=== PATIENT | female | born 1955 | race Caucasian/White ===

== ENCOUNTER 2023-02-13 15:51 | Emergency (ER) | payer MEDICARE ==
[~2023-02-13] VITALS: Ht 165.1 cm; Wt 85.3 kg
[2023-02-13] MEDS ORDERED: ONDANSETRON HCL INJ 2MG/ML 2ML 2 MG/ML VIAL IV STA (16:13)
[2023-02-13] MEDS ORDERED: KETOROLAC TROMETHAMINE 30 MG/ML VIAL IV STA (16:13)
[2023-02-13] MEDS ORDERED: Morphine 2mg Syringe 2 MG/ML SYR IV STA (16:13)
[2023-02-13 16:47] LABS: BASOPHILS # (AUTO) 0.1 (0.0-0.1); BASOPHILS % 0.6 % (0.0-1.0); EOSINOPHILS # (AUTO) 0.1 (0.0-0.4); EOSINOPHILS % 1.2 % (0.0-6.0); HEMATOCRIT 39.1 % (34.2-44.1); HEMOGLOBIN 12.5 g/dL (12.0-16.0); LYMPHOCYTES # (AUTO) 1.6 (1.0-3.2); LYMPHOCYTES % 21.3 % (18.0-39.1); MEAN CORPUSCULAR HEMOGLOBIN 28.4 pg (28-32); MEAN CORPUSCULAR VOLUME 88.9 fL (81-99); MONOCYTES # (AUTO) 0.6 (0.2-0.8); MONOCYTES % 7.9 % (4.4-11.3); NEUTROPHILS # (AUTO) 5.3 (2.1-6.9); NEUTROPHILS % 68.7 % (38.7-80.0); PLATELET COUNT 341 x10e3/uL (140-360); RED CELL DISTRIBUTION WIDTH 13.4 % (11.7-14.4)
[2023-02-13 16:58] LABS: INR 0.88; PROTHROMBIN TIME 12.4 seconds (11.9-14.5)
[2023-02-13 16:59] LABS: PARTIAL THROMBOPLASTIN TIME 31.8 seconds (23.8-35.5)
[2023-02-13 17:06] LABS: ALBUMIN 3.9 g/dL (3.5-5.0); ALBUMIN/GLOBULIN RATIO 1.3 (0.8-2.0); ANION GAP 15.1 mmol/L (8-16); CREATININE, SERUM 0.62 mg/dL (0.57-1.11); POTASSIUM 4.1 mmol/L (3.5-5.1)
[2023-02-13] MEDS ORDERED: ULTRAM 50MG50 MG PO (18:34)
[2023-02-13 19:02] VITALS: BP 141/79; PULSE 67; RESP 18; O2SAT 99
== END 2023-02-13 19:00 | disposition home or self-care (01) ==
LOC: ER 16:03
DX: R60.9 Edema, unspecified (principal); M79.672 Pain in left foot; S92.354D Nondisplaced fracture of fifth metatarsal bone, right foot, subsequent encounter for fracture with routine healing
CPT/HCPCS: 36415; 73610; 73630; 80053; 85025; 85610; 85730; 93971; 99284; J1885; J2270; J2405

== ENCOUNTER 2025-05-20 17:28 | Inpatient (IN) | payer MEDICARE ==
[~2025-05-20] VITALS: Ht 165.1 cm; Wt 79.8 kg
[~2025-05-20 17:28] MED LIST: ULTRAM 50MG50 MG PO
[2025-05-20 18:13] VITALS: TEMP 97.9
[2025-05-20 19:05] LABS: BASOPHILS % 0.6 % (0.0-1.0); EOSINOPHILS % 1.1 % (0.0-6.0); LYMPHOCYTES % 21.4 % (18.0-39.1); MONOCYTES % 6.9 % (4.4-11.3); NEUTROPHILS % 69.6 % (38.7-80.0); RED CELL DISTRIBUTION WIDTH 13.4 % (11.7-14.4)
[2025-05-20 19:10] LABS: INR 0.9
[2025-05-20 19:16] LABS: EST GLOMERULAR FILTRATION RATE 98.0 ML/MIN (>=60)
[2025-05-20 21:00] VITALS: PULSE 79; RESP 17
[2025-05-20] MEDS ORDERED: ONDANSETRON HCL INJ 2MG/ML 2ML 2 MG/ML VIAL IV PRN (22:00)
[2025-05-20] MEDS ORDERED: SODIUM CHLORIDE FLUSH 10 ML SYR INJ PRN (22:00)
[2025-05-20] MEDS ORDERED: Morphine 2mg Syringe 2 MG/ML SYR IV PRN (22:00)
[2025-05-20] MEDS ORDERED: METOPROLOL SUCC25 MG PO (23:23)
[2025-05-20] MEDS ORDERED: ATORVASTATIN CA20 MG PO (23:23)
[2025-05-20] MEDS ORDERED: ATROVENT HFA12.9 GM INH (23:23)
[2025-05-20] MEDS ORDERED: LIOTHYRONINE SO5 MCG PO (23:23)
[2025-05-20] MEDS ORDERED: PANTOPRAZOLE SO40 MG PO (23:23)
[2025-05-20] MEDS ORDERED: MULTI-VITAMIN1 EACH PO (23:23)
[2025-05-20] MEDS ORDERED: VITAMIN D250 MCG PO (23:23)
[2025-05-20] MEDS ORDERED: ASPIRIN CHEW81 MG PO (23:23)
[2025-05-20] MEDS ORDERED: BRILINTA90 MG PO (23:23)
[2025-05-20] MEDS ORDERED: DOCUSATE SODIU100 MG PO (23:23)
[2025-05-21] VITALS (9 sets, daily range): BP systolic 97–117; BP diastolic 66–79; PULSE 62–80; RESP 16–20; TEMP 97.2–98.2; O2SAT 96–100
[2025-05-21 06:01] LABS: BASOPHILS % 0.6 % (0.0-1.0); EOSINOPHILS % 2.3 % (0.0-6.0); LYMPHOCYTES % 26.1 % (18.0-39.1); MONOCYTES % 8.4 % (4.4-11.3); NEUTROPHILS % 61.7 % (38.7-80.0); RED CELL DISTRIBUTION WIDTH 13.3 % (11.7-14.4)
[2025-05-21 06:36] LABS: EST GLOMERULAR FILTRATION RATE 96.0 ML/MIN (>=60)
[2025-05-21] MEDS: FLUCONAZOLE 100 MG TAB PO ONE (14:04)
[2025-05-21] MEDS: ACETAMINOPHEN 325 MG TAB PO PRN (14:05)
[2025-05-21] MEDS ORDERED: IPRATROPIUM BROMIDE 17 MCG ACTUATION INHALER INH SCH (18:00)
[2025-05-21] MEDS: LIOTHYRONINE SODIUM 5 MCG TAB PO SCH (18:22)
[2025-05-21] MEDS: ATORVASTATIN 20 MG TAB PO SCH (21:15)
[2025-05-22] MEDS: IPRATROPIUM BROMIDE 0.02% 2.5 ML NEB NEB SCH (01:00)
[2025-05-22 04:00] VITALS: BP 117/74; PULSE 65; RESP 17; TEMP 97.6; O2SAT 98
[2025-05-22] MEDS: LIOTHYRONINE SODIUM 5 MCG TAB PO SCH (06:00)
[2025-05-22 06:53] LABS: BASOPHILS % 0.8 % (0.0-1.0); EOSINOPHILS % 2.0 % (0.0-6.0); LYMPHOCYTES % 28.0 % (18.0-39.1); MONOCYTES % 8.3 % (4.4-11.3); NEUTROPHILS % 60.4 % (38.7-80.0); RED CELL DISTRIBUTION WIDTH 13.3 % (11.7-14.4)
[2025-05-22 08:22] VITALS: BP 112/72; PULSE 68; RESP 18; TEMP 97.6; O2SAT 99
[2025-05-22 08:30] VITALS: BP 112/72; PULSE 68; RESP 18; TEMP 97.6; O2SAT 99
[2025-05-22] MEDS: TICAGRELOR 90 MG TABLET PO SCH (08:59)
[2025-05-22] MEDS: MULTIVITAMINS/MINERALS TAB PO SCH (09:00)
[2025-05-22] MEDS: PANTOPRAZOLE SOD 40 MG TABEC PO SCH (09:00)
[2025-05-22] MEDS: ASPIRIN 81 MG CHEW TAB PO SCH (09:00)
[2025-05-22] MEDS: DOCUSATE SODIUM 100 MG CAP PO SCH (09:01)
[2025-05-22] MEDS: METOPROLOL SUCCINATE 25 MG TAB XL PO SCH (09:01)
[2025-05-22 11:52] VITALS: BP 116/79; PULSE 82; RESP 18; TEMP 97.9; O2SAT 100
[2025-05-22] MEDS: TRAMADOL HCL 50 MG TAB PO PRN (13:04)
[2025-05-22 16:41] VITALS: BP 116/75; PULSE 71; RESP 18; TEMP 98.1; O2SAT 97
[2025-05-22 20:00] VITALS: BP 103/69; PULSE 79; RESP 18; TEMP 98.1; O2SAT 99
[2025-05-22] MEDS: MUPIROCIN 2% OINT 22 GM TUBE TOP SCH (20:02)
[2025-05-23] VITALS: BP 122/72; PULSE 68; RESP 18; TEMP 97.7; O2SAT 95
[2025-05-23 04:00] VITALS: BP 128/81; PULSE 69; RESP 18; TEMP 97.7; O2SAT 100
[2025-05-23 08:00] VITALS: BP 112/79; PULSE 69; RESP 17; TEMP 97.5; O2SAT 99
[2025-05-23 09:30] VITALS: BP 112/79; PULSE 69; RESP 18; TEMP 97.5; O2SAT 100
[2025-05-23] MEDS: COLLAGENASE 5 GM TUBE TP SCH (09:54)
[2025-05-23 12:00] VITALS: BP 128/79; PULSE 75; RESP 18; TEMP 98.5; O2SAT 98
== END 2025-05-23 16:15 | disposition home or self-care (01) | DRG 603 ==
LOC: ER 18:51 → ERHOLD 21:51 → MED/SURG3 22:51
PROVIDERS: ADMIT Family Medicine; ATTEND Family Medicine
PROC: 02HV33Z Insertion of Infusion Device into Superior Vena Cava, Percutaneous Approach (ICD-10-PCS; principal; 2025-05-22)
PROC: B548ZZA Ultrasonography of Superior Vena Cava, Guidance (ICD-10-PCS; 2025-05-22)
DX: L03.115 Cellulitis of right lower limb (principal); L03.116 Cellulitis of left lower limb; S81.811A Laceration without foreign body, right lower leg, initial encounter; W22.8XXA Striking against or struck by other objects, initial encounter; Y92.009 Unspecified place in unspecified non-institutional (private) residence as the place of occurrence of the external cause; J44.9 Chronic obstructive pulmonary disease, unspecified; I10 Essential (primary) hypertension; E78.5 Hyperlipidemia, unspecified; E03.9 Hypothyroidism, unspecified; I25.10 Atherosclerotic heart disease of native coronary artery without angina pectoris; K21.00 Gastro-esophageal reflux disease with esophagitis, without bleeding; Z98.84 Bariatric surgery status; Z71.81 Spiritual or religious counseling; Z79.899 Other long term (current) drug therapy; Z79.02 Long term (current) use of antithrombotics/antiplatelets; Z79.82 Long term (current) use of aspirin
CPT/HCPCS: 36415; 36569; 71045; 80048; 80053; 85025; 85610; 85730; 93971; 94799; 99252; 99284; J0690; J2470